=== PATIENT | female | born 1980 | race Two or more races ===

== ENCOUNTER 2019-06-03 05:45 | Day surgery (SDC) | payer OTHER ==
[~2019-06-03 05:45] MED LIST: FIORICET; FIORICET PO
[2019-06-03] MEDS ORDERED: METHYLERGO0.2 MG/1 M PO (12:36)
[2019-06-03] MEDS ORDERED: NAPROXEN500 MG PO (12:36)
== END 2019-06-03 13:45 | disposition home or self-care (01) ==
LOC: CIR.AMB 05:45
DX: D25.0 Submucous leiomyoma of uterus (principal)

== ENCOUNTER 2023-09-04 05:20 | Day surgery (SDC) | payer OTHER ==
[~2023-09-04] VITALS: Ht 162.6 cm; Wt 55.8 kg
[~2023-09-04 05:20] MED LIST changes: +BOTOX100 UNIT IJ; +EMGALITY P120 MG/1 M; +METHYLERGO0.2 MG/1 M PO; +NAPROXEN500 MG PO; +NEFAZODONE HCL250 MG PO; +PEPCID40 MG PO; +ROSUVASTATIN CA20 MG PO
[2023-09-04] MEDS ORDERED: ZITHROMAX500 MG PO (10:13)
[2023-09-04] MEDS ORDERED: MEFENAMIC ACID250 MG PO (10:26)
== END 2023-09-04 12:20 | disposition home or self-care (01) ==
LOC: CIR.AMB 05:20
PROVIDERS: ATTEND Obstetrics & Gynecology
DX: D25.0 Submucous leiomyoma of uterus (principal); N92.1 Excessive and frequent menstruation with irregular cycle; Z20.822 Contact with and (suspected) exposure to COVID-19

== ENCOUNTER 2024-07-16 05:30 | Day surgery (SDC) | payer OTHER ==
[2024-07-13 12:18] VITALS: BP 110/80
[2024-07-13 12:43] LABS: INR 1.04; PARTIAL THROMBOPLASTIN TIME 25.5 SECONDS (22.0-34.0); PROTHROMBIN TIME 11.3 SECONDS (9.0-11.5)
[2024-07-13 12:58] LABS: ALBUMIN 3.9 gm/dL (3.4-5.0); CALCIUM 9.3 mg/dL (8.5-10.1); CREATININE SERUM 0.54 mg/dL (0.55-1.02); GFR 121.54; POTASSIUM 4.35 mEq/L (3.5-5.1)
[~2024-07-16] VITALS: Ht 162.6 cm; Wt 55.3 kg
[~2024-07-16 05:30] MED LIST changes: +MEFENAMIC ACID250 MG PO; +ZITHROMAX500 MG PO
[2024-07-16 07:48] LABS: URINE APPEARANCE Clear; URINE BILIRRUBIN Negative (NEGATIVE); URINE COLOR Yellow; URINE GLUCOSE Negative (NEGATIVE); URINE KETONE Negative (NEGATIVE); URINE LEUKOCYTE Negative; URINE NITRATE Negative; URINE PROTEIN Negative (NEGATIVE); URINE UROBILINOGEN 0.2 E.U./dl
[2024-07-16 07:52] LABS: URINE RBC 14.7 uL (0.0-20.8); URINE WBC 8.2 uL (0.0-23.2)
[2024-07-16 08:00] LABS: URINE BLOOD Trace; URINE CAST 0.29 uL (0.0-1.40)
[2024-07-16] MEDS ORDERED: POVIDONE-IODINE 118 ML BOTT TOP ONE (10:15)
[2024-07-16] MEDS ORDERED: CIPROFLOXACIN HCL 0.175 MG/DR DROPS OTIC ONE (10:15)
[2024-07-16] MEDS ORDERED: CEFAZOLIN SODIUM 1,000 MG VIAL IV ONE (10:15)
== END 2024-07-16 10:50 | disposition home or self-care (01) ==
LOC: CIR.AMB 05:30
PROVIDERS: Obstetrics & Gynecology; ATTEND Otolaryngology Otology & Neurotology
DX: H90.11 Conductive hearing loss, unilateral, right ear, with unrestricted hearing on the contralateral side (principal); H65.21 Chronic serous otitis media, right ear; H74.11 Adhesive right middle ear disease